=== PATIENT | male | born 2000 | race Caucasian/White ===

== ENCOUNTER 2023-01-01 21:28 | Emergency (ER) | payer BC ==
[2023-01-01] MEDS ORDERED: Sodium Chloride 0.9% 2.5 ML Syringe FLUSH PRN (21:29)
[2023-01-01] MEDS ORDERED: Ondansetron 4 MG/2 ML SDV IVPUSH ONE (21:29)
[2023-01-01] MEDS ORDERED: Morphine 4 MG/ML Syringe IVPUSH ONE (21:29)
[2023-01-01] MEDS ORDERED: Sodium Chloride 0.9% 10 ML Syringe FLUSH PRN (21:29)
[2023-01-01] MEDS ORDERED: Lidocaine 1% 5 ML VIAL INJECT ONE (21:30)
[2023-01-01] MEDS ORDERED: HYDROmorphone 1 MG/ML Syringe ONE (21:34)
[2023-01-01] MEDS ORDERED: HYDROmorphone 1 MG/ML Syringe IVPUSH ONE (21:34)
[2023-01-01] MEDS ORDERED: Lidocaine 1% 50 ML MDV ONE (21:38)
[2023-01-01 22:09] LABS: CARBON DIOXIDE,CO2 20.1 mmol/L (21.0-32.0); POTASSIUM,K 3.6 mmol/L (3.5-5.1)
[2023-01-01] MEDS ORDERED: Iopamidol 755 MG/ML 500 ML Multipack Bottle IVPUSH ONE (22:18)
== END 2023-01-01 22:45 ==
LOC: MW.ED 21:28
DX: J93.9 Pneumothorax, unspecified (principal)
CPT/HCPCS: 32551; 36415; 71045; 71260; 74177; 80053; 84484; 85025; 96374; 96375; 99285; J1170; J2405; J3490; Q9967